=== PATIENT | male | born 1945 | race Caucasian/White ===

== ENCOUNTER 2019-01-14 13:04 | Outpatient (CLI) | payer MEDICARE ==
--- NOTE | 2019-01-16 19:04 | XRAY Report ---
Reason: ACUTE LBP Procedure Date: 01/14/2019 Accession Number: [id number] / [id number] Procedure: XR - Lumbar Spine 2 View CPT Code: FULL RESULT: EXAM: LUMBOSACRAL SPINE RADIOGRAPHY EXAM DATE: 01/14/2019 01:41 PM. CLINICAL HISTORY: ACUTE LBP. COMPARISONS: None. TECHNIQUE: 3 views. FINDINGS: Alignment: Dextroscoliosis of upper lumbar spine. Bones: Osseous structures appear mildly osteopenic. Five [id number] lumbar vertebral bodies are present. No fractures or bone lesions evident. Disks: Suspected disk space narrowing in the lumbar spine although evaluation is limited on provided images. Facets: Facet degenerative changes are present, most prominent in the lower lumbar spine. Sacroiliac Joints: Unremarkable. Soft Tissues: Normal. The visualized bowel gas pattern is normal. IMPRESSION: 1. Degenerative changes and scoliosis of lumbar spine. 2. No definite acute fracture evident. [facility]
== END 2019-01-14 13:05 | disposition home or self-care (01) ==
LOC: DI 13:04
PROVIDERS: ATTEND Family Medicine
DX: M51.36 Other intervertebral disc degeneration, lumbar region (principal); M41.86 Other forms of scoliosis, lumbar region
CPT/HCPCS: 72100